=== PATIENT | male | born 1970 | race Hispanic/Latino ===

== ENCOUNTER 2017-03-20 08:58 | Emergency (ER) | payer BC ==
--- NOTE | 2017-03-20 09:09 | ERNOTE ---
ENT HPI Time Seen by Provider: 03/20/17 09:01 Source: patient Exam Limitations: no limitations - Immun/Allergies/Home Medications Immunizations: IMMUNIZATION HX History of Influenza Vaccine No Allergies/Adverse Reactions: Allergies Allergy/AdvReac Type Severity Reaction Status Date / Time strawberry Allergy Severe Anaphylaxis Verified 03/20/17 09:10 Home Medications: HOME MEDICATIONS Furosemide [Lasix] 80 mg PO BID 04/16/15 [Last Taken Unknown] Glyburide [Diabeta] 5 mg PO BID 04/16/15 [Last Taken Unknown] Lisinopril [Zestril] 40 mg PO DAILY 04/16/15 [Last Taken Unknown] metFORMIN HCL [Glucophage] 500 mg PO BID 04/16/15 [Last Taken Unknown] Potassium Chloride [Klor-Con 10] 10 meq PO TID 03/20/17 [Last Taken Unknown] - History of Present Illness Narrative: Patient started to have a sore throat during the night, mainly on the right side , also pain in his right ear and swelling below his right jaw, denies cough or fever, pain with swallowing but still able to swallow saliva. Date (Duration): 03/20/17 Time (Timing): 01:30 ENT Location: Present: throat Prearrival Treatment: Present: over the counter meds - aleve Associated Symptoms - ENT: Denies: fever, cough, voice change Prior Treament: Denies: recently seen Review of Systems - Review of Systems Constitutional: Absent: recent illness, fever, chills ENT: Present: See HPI, sore throat. Absent: nose congestion, nasal drainage Respiratory: Absent: shortness of breath Cardiology: Absent: chest pain Gastrointestinal/Abdominal: Absent: nausea, vomiting, diarrhea, abdominal pain Genitourinary: Present: no symptoms reported Skin: Absent: rash Neurological: Absent: headache - Patient's Past Medical History Patient History - Medical: Diabetes Type 2, Obesity Patient History - Cardiac/Respiratory: CHF, Hypertension, Sleep Apnea Patient History - Cancer: No Hx of Cancer Patient History - Surgical Procedures: No surgical history Patient History - Other: None - Social History Living Situations: home Abuse History: No History of abuse Smoking Status: Never smoker Alcohol Use: rarely Drug Use: none - Immunizations Immunizations Up to Date: Yes Hx Pneumococcal Vaccination: No History of Influenza Vaccine: No Physical Exam - Physical Exam General Appearance: Present: wd/wn, alert, no apparent distress, obese Eye Exam: Normal inspection: bilateral, PERRL: bilateral Ears, Nose, Throat: Present: normal except -, tonsillar swelling - large tonsills (symmetric) mild erythema. Absent: nasal congestion Neck: Present: lymphadenopathy (R) Respiratory: Present: no respiratory distress, normal breath sounds, no accessory muscle use, lungs clear Cardiovascular/Chest: Present: regular rate, rhythm, no murmur Neurological Exam: Present: alert, oriented, normal mood/affect, no motor/ sensory deficits Skin Exam: Present: normal color, warm/dry ED Progress - Results and Orders Patient's Lab Results:: I have reviewed the patient's lab results. - Vital Signs Patient's Vital Signs:: I have reviewed the patient's vital signs. - Progress/Reassessment Progress Note-Subjective: 03/20/17 09:54 discussed results and plan with patient Departure Clinical Impression: Pharyngitis Qualifiers: Pharyngitis/tonsillitis etiology: unspecified etiology Qualified Code(s): J02.9 - Acute pharyngitis, unspecified - Departure Disposition: Home self-care Condition: Good Instructions: Pharyngitis, [id number] Additional Instructions: use over the counter ibuprofen four tablets three times a days as needed for pain Referrals: Uriel Prince DO [Primary Care Provider] -
[2017-03-20 09:10] VITALS: BP 145/87
--- OUTSIDE RECORDS SUMMARY | 2017-03-20 09:14 | XMS REPORT | Continuity of Care Document ---
:1970 Author Organization [facility] ([facility]) Address [address] [place] [address] Phone [phone] Care Team Providers Name Role Phone Isidro Camejo Primary Care Provider [phone] Source Comments This disclosure is being made pursuant to the Care Everywhere program, applicable federal and state laws, and may not contain all informaitonavailable regarding this patient.[facility] ([facility]) Active Allergies and Adverse Reactions No Known Allergies Current Medications Prescription Sig. Disp. Refills Start Date End Date Status furosemide 40 mg tablet Take 40 mg by Active mouth 3 times daily. lisinopril 40 mg tablet Take 40 mg by Active mouth daily. potassium chloride Take 10 mEq by Active (KLOR-CON 10) 10 mEq XR mouth 3 times tablet daily. simvastatin 10 mg tablet Take 10 mg by Active mouth every evening. cyclopentolate (CYCLOGYL) instill 1 Drop Active 1 % ophthalmic solution onto the right eye once. ciprofloxacin 0.3 % instill 1 Drop Active ophthalmic solution onto the right eye every 2 hours. 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 No skin findings suggestive of scleroderma. DM (diabetes mellitus) 01/19/2011 Overview: On diet, was on metformin and Actos in past Hyperlipidemia 01/19/2011 Hypertension 01/19/2011 Obesity 01/19/2011 Osteoarthritis, knee 01/19/2011 CHF (congestive heart failure) 01/19/2011 Overview: Hospitalized last year in [place] for CHF. Swelling of limb 12/23/2009 Encounter for occupational therapy 12/23/2009 Social History Tobacco Use Types Packs/Day Years Used Date Never Smoker Alcohol Use Drinks/Week oz/Week Comments No Last Filed Vital Signs Vital Sign Reading Time Taken Blood Pressure 150/89 01/19/2011 2:59 PM CDT Pulse 103 01/19/2011 2:59 PM CDT Temperature 37.4 C (99.3 F) 01/19/2011 2:59 PM CDT Respiratory Rate - - Height 1.695 m (5' 6.73") 01/19/2011 2:59 PM CDT Weight 168.1 kg (370 lb 9.5 oz) 01/19/2011 2:59 PM CDT Body Mass Index 58.51 01/19/2011 2:59 PM CDT Oxygen Saturation - - Plan of Care Health Maintenance Due Date Last Done Comments Hepatitis B Vaccine (1 of 3 - Primary Series) 1970 Tdap Vaccine 1979 DIABETIC: Cholesterol 1986 Diabetic: Hdl 1986 DIABETIC: Hemoglobin A1C 1986 Diabetic: Ldl 1986 DIABETIC: Microalbumin 1986 DIABETIC: Triglycerides 1986 MMR Vaccine 1986 Td Vaccine 1986 Pneumococcal Vaccine (1 of 1 - PPSV23) 1987 DIABETIC: Foot Exam 03/16/2011 DIABETIC: Retinal Eye Exam 03/16/2011 Influenza Vaccine: Seasonal (#1) 05/03/2016 Results from Last 3 Months Not on file
[2017-03-20] MEDS ORDERED: IBUPROFEN 400 MG TABLET PO ONE (09:52)
[2017-03-20] MEDS ORDERED: IBUPROFEN 400 MG TABLET ONE (09:55)
== END 2017-03-20 09:57 | disposition home or self-care (01) ==
LOC: ER 08:58
DX: J02.9 Acute pharyngitis, unspecified (principal); E11.9 Type 2 diabetes mellitus without complications; I10 Essential (primary) hypertension; I50.9 Heart failure, unspecified

== ENCOUNTER 2017-07-19 11:38 | Emergency (ER) | payer OTHER, BC ==
--- NOTE | 2017-07-19 12:25 | ERNOTE ---
Upper Extremity HPI - Narrative Date of Service: 07/19/17 - General Time Seen by Provider: 07/19/17 12:18 Source: patient Exam Limitations: no limitations - Immun/Allergies/Home Medications Immunizations: IMMUNIZATION HX Immunizations Up to Date Yes History of Influenza Vaccine Yes Hx Pneumococcal Vaccination Yes Allergies/Adverse Reactions: Allergies Allergy/AdvReac Type Severity Reaction Status Date / Time strawberry Allergy Severe Anaphylaxis Verified 07/19/17 12:16 Home Medications: HOME MEDICATIONS Furosemide [Lasix] 80 mg PO BID 04/16/15 [Last Taken Unknown] Glyburide [Diabeta] 5 mg PO BID 04/16/15 [Last Taken Unknown] Lisinopril [Zestril] 40 mg PO DAILY 04/16/15 [Last Taken Unknown] metFORMIN HCL [Glucophage] 500 mg PO BID 04/16/15 [Last Taken Unknown] Potassium Chloride [Klor-Con 10] 10 meq PO TID 03/20/17 [Last Taken Unknown] Ibuprofen [Motrin] 800 mg PO TID PRN #15 tablet 07/19/17 [Last Taken Unknown] Naproxen 1,000 mg PO DAILY 07/19/17 [Last Taken Unknown] - History of Present Illness Narrative: Patient presents to the emergency room stating that he was twisting something at work when he felt a sudden pop in his right shoulder since then he has not been able to raise it greater than 30 from the vertical plane. Patient states prior to this injury he was able to move his shoulders freely without any limitations or pain whatsoever. Review of Systems - Review of Systems Constitutional: Present: no symptoms reported EYE: Present: no symptoms reported ENT: Present: no symptoms reported Respiratory: Present: no symptoms reported Cardiology: Present: no symptoms reported Gastrointestinal/Abdominal: Present: no symptoms reported Genitourinary: Present: no symptoms reported Musculoskeletal: Present: See HPI - Patient's Past Medical History Patient History - Medical: Diabetes Type 2, Obesity Patient History - Cardiac/Respiratory: CHF, Hypertension, Sleep Apnea Patient History - Cancer: No Hx of Cancer Patient History - Surgical Procedures: No surgical history Patient History - Other: None - Social History Living Situations: home Abuse History: No History of abuse Psych History: No pertinent hx Smoking Status: Former smoker Alcohol Use: none Drug Use: none - Immunizations Immunizations Up to Date: Yes Hx Pneumococcal Vaccination: Yes History of Influenza Vaccine: Yes Physical Exam - Physical Exam General Appearance: Present: wd/wn, alert, no apparent distress Head Exam: Present: normal inspection, no evidence of injury Respiratory: Present: no respiratory distress, normal breath sounds, chest nontender, lungs clear Cardiovascular/Chest: Present: regular rate, rhythm, no murmur, normal peripheral pulses Extremity Exam: Present: normal inspection, other - patient is unable, secondary to pain to raise his right upper extremity more than 30 minutes from the vertical plane Neurological Exam: Present: alert, oriented, normal mood/affect, no motor/ sensory deficits ED Progress - Vital Signs Patient's Vital Signs:: I have reviewed the patient's vital signs. Vital Signs: Vital Signs 07/19/17 12:11 Temperature 36.3 C L Pulse Rate 80 Respiratory 16 Rate Blood Pressure 138/89 O2 Sat by Pulse 97 Oximetry - X-Ray X-Ray #1 X-Ray: shoulder - Progress/Reassessment Chief Complaint: Shoulder Injury/Pain Departure Clinical Impression: Shoulder pain, acute Qualifiers: Laterality: right Qualified Code(s): M25.511 - Pain in right shoulder - Departure Disposition: Home self-care Condition: Good Instructions: Shoulder Pain, [id number] Referrals: Uriel Prnice DO [Primary Care Provider] - Prescriptions: Ibuprofen [Motrin] 800 mg PO TID PRN #15 tablet PRN Reason: Pain
[2017-07-19 13:15] VITALS: BP 142/84
== END 2017-07-19 13:14 | disposition home or self-care (01) ==
LOC: ER 11:38
DX: M25.511 Pain in right shoulder (principal); E11.9 Type 2 diabetes mellitus without complications; I50.9 Heart failure, unspecified; I10 Essential (primary) hypertension; Z87.891 Personal history of nicotine dependence